=== PATIENT | male | born 1935 | race Caucasian/White ===

== ENCOUNTER 2018-07-19 13:37 | Emergency (ER) | payer OTHER ==
[~2018-07-19] VITALS: Ht 180.3 cm; Wt 90.7 kg
[~2018-07-19 13:37] MED LIST: ADULT LOW DOSE81 MG PO; CIPRO500 MG; CYMBALTA60 MG PO; DILTIAZEM ER120 M2 PO; FLECAINIDE ACET50 M1 PO; HYTRIN 5 M5 MG/1 CAP PO; LIPITOR10 MG PO; LISINOPRIL10 MG PO; LISINOPRIL40 MG PO; LYRICA 75 MG CA75 MG PO; MOBIC7.5 MG PO; NAMZARIC 28 MG1 EACH PO; SIMVASTATIN40 MG PO; XARELTO20 MG PO; [UNRECOGNIZED DRUG - OTHER]
[2018-07-19] MEDS ORDERED: STOOL SOFTENER100 MG PO (13:53)
[2018-07-19] MEDS ORDERED: JOINT HEALTH T1 EACH PO (13:54)
[2018-07-19] MEDS ORDERED: FIBERCON625 M1 PO (13:54)
[2018-07-19] MEDS ORDERED: NEPHROCAPS SOFT1 CAP PO (13:54)
[2018-07-19] MEDS ORDERED: TYLENOL325 MG PO (13:55)
[2018-07-19] MEDS ORDERED: CENTRUM SILVER1 EAC2 PO (13:55)
[2018-07-19 15:03] VITALS: BP 120/74
== END 2018-07-19 15:04 | disposition home or self-care (01) ==
LOC: M.ERS 13:37
DX: S42.294A Other nondisplaced fracture of upper end of right humerus, initial encounter for closed fracture (principal); F41.9 Anxiety disorder, unspecified; E78.5 Hyperlipidemia, unspecified; I10 Essential (primary) hypertension; G62.9 Polyneuropathy, unspecified; F03.90 Unspecified dementia, unspecified severity, without behavioral disturbance, psychotic disturbance, mood disturbance, and anxiety; Z88.1 Allergy status to other antibiotic agents; Z88.5 Allergy status to narcotic agent; Z88.6 Allergy status to analgesic agent; Z88.8 Allergy status to other drugs, medicaments and biological substances; W01.0XXA Fall on same level from slipping, tripping and stumbling without subsequent striking against object, initial encounter; Y93.89 Activity, other specified; Y92.89 Other specified places as the place of occurrence of the external cause; Y99.8 Other external cause status

== ENCOUNTER 2019-11-25 15:36 | Emergency (ER) | payer OTHER ==
[~2019-11-25] VITALS: Ht 180.3 cm; Wt 63.5 kg
[~2019-11-25 15:36] MED LIST changes: +CENTRUM SILVER1 EAC2 PO; +FIBERCON625 M1 PO; +JOINT HEALTH T1 EACH PO; +NEPHROCAPS SOFT1 CAP PO; +STOOL SOFTENER100 MG PO; +TYLENOL325 MG PO
[2019-11-25 16:00] LABS: ABSOLUTE EOSINOPHILS 0.1 thou/uL (0.0-0.7); ABSOLUTE LYMPHOCYTES 0.7 thou/uL (0.8-5.3); ABSOLUTE MONOCYTES 0.3 thou/uL (0.0-1.2); ABSOLUTE NEUTROPHILS 3.9 thou/uL (1.6-8.1); BASOPHILS 0.5 %; EOSINOPHILS 1.6 %; HEMATOCRIT 38.7 % (42.0-52.0); HEMOGLOBIN 13.9 gm/dL (14.0-18.0); LYMPHOCYTES 14.3 %; MCH 32.7 pg (26.0-34.0); MCHC 35.8 g/dL (28.0-37.0); MCV 91.2 fL (80.0-100.0); MONOCYTES 6.7 %; MPV 7.7 fl. (7.2-11.1); NUCLEATED RBCS 0 /100WBC; PLATELET COUNT* 175 thou/uL (150-400); POLYS 76.9 %; RBC 4.24 mil/uL (4.50-6.00); RDW-CV 13.4 % (10.5-14.5); WBC 5.1 thou/uL (4.0-11.0)
[2019-11-25 16:10] LABS: APTT 26.4 Seconds (25.0-31.3); PROTIME 10.5 Seconds (9.20-11.50)
[2019-11-25] MEDS ORDERED: TRAZODONE 150150 M1 PO (16:13)
[2019-11-25 16:23] LABS: CALCIUM 8.7 mg/dL (8.5-10.1); POTASSIUM 4.4 mmol/L (3.5-5.1)
[2019-11-25 16:28] LABS: ALBUMIN 3.4 g/dL (3.4-5.0); TOTAL BILIRUBIN 0.5 mg/dL (<0.1-1.0); TOTAL PROTEIN 6.6 g/dL (6.4-8.2)
[2019-11-25 17:18] LABS: URINE BILIRUBIN NEGATIVE (Negative); URINE BLOOD NEGATIVE (Negative); URINE CLARITY CLEAR; URINE COLOR YELLOW; URINE GLUCOSE-RANDOM NEGATIVE (Negative); URINE KETONES NEGATIVE (Negative); URINE LEUKOCYTES-REFLEX NEGATIVE (Negative); URINE NITRITE-REFLEX NEGATIVE (Negative); URINE PROTEIN NEGATIVE (Negative); URINE SPECIFIC GRAVITY 1.015 (1.005-1.030); URINE UROBILINOGEN 0.2 E.U./dl (0.2-1.0)
[2019-11-25 18:25] VITALS: BP 136/85
--- NOTE | 2019-11-26 13:07 | EKG ---
[place] [address] ELECTROCARDIOGRAM REPORT Name: SANDI GRANT Room: [facility]#: [id number] Admission: 11/25/19 Attend Phys: Discharge: 11/25/19 Date of : 39 Date of Service: 11/25/19 1604 Report #: [id number] THIS REPORT FOR: //name// [facility] ED Test Date: 2019-11-25 Test Time: 16:04:45 Pat Name: SANDI GRANT Department: Room: Gender: [employer]: : 1935 Requested By: Adam Brush Order Number: [id number] MD: Ty Duvall Measurements Intervals [place] Rate: 104 P: PA: QRS: 24 QRSD: 110 T: 15 QT: 339 QTc: 446 Interpretive Statements Atrial fibrillation Low voltage, precordial leads Abnormal R-wave progression, early transition Abnormal inferior Q waves Baseline wander in lead(s) V4 Compared to ECG 07/25/2017 14:24:55 Inferior Q waves now present Q waves now present Electronically Signed On 11-26-2019 13:05:54 CDT by Ty Duvall [email or web address] <ELECTRONICALLY SIGNED> By: Ty Duvall MD, FAC 11/26/19 1305 1604 1604 Ty Duvall MD, FAC /EPI
== END 2019-11-25 18:26 | disposition home or self-care (01) ==
LOC: M.ERS 15:36
PROVIDERS: Emergency Medicine
DX: S70.02XA Contusion of left hip, initial encounter (principal); I10 Essential (primary) hypertension; E78.5 Hyperlipidemia, unspecified; G62.9 Polyneuropathy, unspecified; Z88.1 Allergy status to other antibiotic agents; Z88.5 Allergy status to narcotic agent; Z88.6 Allergy status to analgesic agent; Z88.8 Allergy status to other drugs, medicaments and biological substances; W18.39XA Other fall on same level, initial encounter; Y93.89 Activity, other specified; Y92.89 Other specified places as the place of occurrence of the external cause; Y99.8 Other external cause status